=== PATIENT | male | born 1945 | race Caucasian/White ===

== ENCOUNTER 2019-01-21 13:07 | Inpatient (IN) | payer MEDICARE ==
[2019-01-21] MEDS ORDERED: ASPIRIN PO ONE (13:39)
[2019-01-21 13:58] LABS: Basophils % (Auto) 0.4 % (0.0-1.8); Eosinophils % (Auto) 0.4 % (0.0-4.3); Hemoglobin 14.7 gm/dl (11.8-15.2); Lymphocytes # (Auto) 1.1 K/mm3 (1.2-5.4); Lymphocytes % (Auto) 14.2 % (13.4-35.0); Mean Corpuscular HGB Conc 34 % (32-34); Mean Corpuscular Volume 95 fl (84-94); Monocytes # (Auto) 0.6 K/mm3 (0.0-0.8); Monocytes % (Auto) 7.6 % (0.0-7.3); Platelet Count 217 K/mm3 (140-440); Red Blood Count 4.51 M/mm3 (3.65-5.03); Red Cell Distribution Width 14.6 % (13.2-15.2)
--- NOTE | 2019-01-21 14:02 | XRay Report ---
AP CHEST: HISTORY: chest pain AP view of the chest demonstrates a normal mediastinal and cardiac contour with clear lungs and normal bony and soft tissue structures. IMPRESSION: Unremarkable AP chest.
[2019-01-21 14:18] LABS: BUN/Creatinine Ratio 12; Blood Urea Nitrogen 11 mg/dL (9-20); Hemolysis Index 10
[2019-01-21] MEDS ORDERED: BABY ASPIRIN ONE (14:43)
--- NOTE | 2019-01-21 15:17 | Emergency Department Report ---
ED Chest Pain HPI - General Chief Complaint: Chest Pain Stated Complaint: CHEST PAIN Time Seen by Provider: 01/21/19 13:47 Source: family, EMS Mode of arrival: Stretcher Limitations: Language Barrier - History of Present Illness Initial Comments: Mr. Pedraza is a 73 yo male with hx of HTN and tobacco abuse who presents with chest pain for the past 10 days. Intermittent chest pain. Moderate in severity. +dyspnea MD Complaint: chest pain -: Gradual, days(s) (10) Onset: during rest, during exertion Pain Location: substernal Severity: moderate Severity scale (0 -10): 2 Quality: tightness, heaviness Consistency: intermittent Improves With: rest - Related Data Allergies Allergy/AdvReac Type Severity Reaction Status Date / Time No Known Allergies Allergy Unverified 01/21/19 13:39 Heart Score - HEART Score History: Highly suspicious EKG: Non-specific Age: > 65 Risk factors: 1-2 risk factors Troponin: < normal limit HEART Score: 6 ED Review of Systems ROS: Stated complaint: CHEST PAIN Other details as noted in HPI Comment: All other systems reviewed and negative Constitutional: denies: fever, malaise Respiratory: see HPI, shortness of breath. denies: cough Cardiovascular: chest pain ED Past Medical Hx - Past Medical History Previous Medical History?: Yes Hx Hypertension: Yes - Surgical History Past Surgical History?: Yes Additional Surgical History: abdominal surgery - Social History Smoking Status: Never Smoker Substance Use Type: None ED Physical Exam - General Limitations: Language Barrier General appearance: alert, in no apparent distress - Head Head exam: Present: atraumatic, normocephalic - Eye Eye exam: Present: normal appearance - ENT ENT exam: Present: mucous membranes moist - Neck Neck exam: Present: normal inspection - Respiratory Respiratory exam: Present: normal lung sounds bilaterally. Absent: respiratory distress, wheezes, rales, rhonchi - Cardiovascular Cardiovascular Exam: Present: regular rate, normal rhythm, normal heart sounds. Absent: systolic murmur, diastolic murmur, rubs, gallop - GI/Abdominal GI/Abdominal exam: Present: soft, normal bowel sounds. Absent: distended, tenderness, guarding, rebound - Rectal Rectal exam: Present: deferred - Extremities Exam Extremities exam: Present: normal inspection - Back Exam Back exam: Present: normal inspection - Neurological Exam Neurological exam: Present: alert, oriented X3 - Psychiatric Psychiatric exam: Present: normal affect, normal mood - Skin Skin exam: Present: warm, dry, intact, normal color. Absent: rash ED Course Vital Signs 01/21/19 13:35 Temperature 98.2 F Pulse Rate 82 Respiratory 13 Rate Blood Pressure 158/96 Blood Pressure 158/96 [Right] O2 Sat by Pulse 97 Oximetry ED Medical Decision Making - Lab Data Result diagrams: 01/21/19 13:47 01/21/19 13:47 Laboratory Results - last 24 hr 01/21/19 01/21/19 13:47 13:47 WBC 7.8 RBC 4.51 Hgb 14.7 Hct 43.0 MCV 95 H MCH 33 H MCHC 34 RDW 14.6 Plt Count 217 Lymph % (Auto) 14.2 [place] % (Auto) 7.6 H Eos % (Auto) 0.4 Baso % (Auto) 0.4 Lymph # 1.1 L [place] # 0.6 Eos # 0.0 Baso # 0.0 Seg Neutrophils % 77.4 H Seg Neutrophils # 6.0 Sodium 141 Potassium 3.2 L Chloride 101.9 Carbon Dioxide 26 Anion Gap 16 BUN 11 Creatinine 0.9 Estimated GFR > 60 BUN/Creatinine Ratio 12 Glucose 176 H Calcium 9.0 Troponin T 0.473 H* - EKG Data 01/21/19 15:18 EKG obtained 1428 Normal sinus rhythm rate 70 beats a minute normal axis normal QT interval no ST elevation nonspecific T-wave abnormality Bifascicular block - Radiology Data Radiology results: report reviewed - Medical Decision Making Acute coronary syndrome, NSTEMI, currently pain-free. Given aspirin. Admitted to hospitalist service. Dr. Donald, motion picture commentator agreed to consult. Recommended [facility] Critical care attestation.: If time is entered above; I have spent that time in minutes in the direct care of this critically ill patient, excluding procedure time. ED Disposition Clinical Impression: Acute coronary syndrome, NSTEMI (non-ST elevated myocardial infarction) Disposition: OP ADMIT IP TO THIS HOSP Is pt being admited?: Yes Does the pt Need Aspirin: No Condition: Stable
[2019-01-21] MEDS ORDERED: SODIUM CHLORIDE FLUSH SYRINGE 10 ML IV PRN ×2 (15:49)
[2019-01-21] MEDS ORDERED: PROVENTIL IH PRN (15:49)
[2019-01-21] MEDS ORDERED: TYLENOL PO PRN (15:49)
[2019-01-21] MEDS ORDERED: NITROSTAT SL PRN (15:49)
[2019-01-21] MEDS ORDERED: ZOFRAN IV PRN (15:49)
[2019-01-21] MEDS ORDERED: MORPHINE IV PRN (15:49)
--- NOTE | 2019-01-21 15:52 | History and Physical Report ---
History of Present Illness Chief complaint: My chest hurts History of present illness: 73 YO Male with HTN, Nicotine Dependence presents to ED for evaluation. Pt states that he has experienced pain in his chest over the past 10 days. Pt states that his pain is 10/10, Substernal, Intermittent, crushing in nature, worsened with exertion, relieved with rest, associated with shortness of breath. Pt acknowledges decreased exercise tolerance, dypsnea on exertion. Pt presented to his PCP office today, and was found to have stable angina. EMS notified and patient transported to [facility]. Pt seen and evaluated in ED and found to have STEMI, as well as symptoms consistent with diastolic CHF. Pt treated with therapeutic lovenox in ED, and admitted to telemetry. Cardiology consulted in ED. Pt denies fever, chills, palpitations, NVD, Trauma, BRBPR, Productive cough, skin rash, unilateral leg swelling, calf pain, individual/family history of DVT/PE/Blood Clotting Disorders. No previous admissions. Past History Past Medical History: hypertension Past Surgical History: bowel surgery Social history: , smoking Family history: hypertension Medications and Allergies Allergies Allergy/AdvReac Type Severity Reaction Status Date / Time No Known Allergies Allergy Unverified 01/21/19 13:39 Active Meds: Active Medications Enoxaparin Sodium (Lovenox) 60 mg 1 mg/kg (60 mg) SUB-Q Q12HR FRANCI Review of Systems Constitutional: no weight loss, no weight gain, no fever, no chills Ears, nose, mouth and throat: no ear pain, no ear discharge, no tinnitis, no decreased hearing, no nose pain Cardiovascular: chest pain, shortness of breath, dyspnea on exertion, decreased exercise tolerance, no orthopnea, no palpitations, no syncope, no li ghtheadedness Respiratory: no cough, no cough with sputum, no excessive sputum, no hemoptysis Gastrointestinal: no nausea, no vomiting, no diarrhea, no constipation Genitourinary Male: no flank pain, no discharge Rectal: no pain, no incontinence, no bleeding Musculoskeletal: no neck stiffness, no neck pain, no shooting arm pain, no arm numbness/tingling, no low back pain, no shooting leg pain Integumentary: no rash, no pruritis, no redness, no sores, no wounds Neurological: no transient paralysis, no paralysis, no weakness, no parathesias, no numbness, no tingling, no seizures Psychiatric: no anxiety, no memory loss, no change in sleep habits, no sleep disturbances, no insomnia, no hypersomnia Endocrine: no cold intolerance, no heat intolerance, no polyphagia, no excessive thirst, no polydipsia Hematologic/Lymphatic: no easy bruising, no easy bleeding, no lymphadenopathy, no lymphedema Allergic/Immunologic: no urticaria, no allergic rhinitis, no wheezing, no persistent infections, no anaphylaxis, no angioedema Exam - Constitutional Vitals: Temp Pulse Resp BP Pulse Ox 98.2 F 82 13 158/96 97 01/21/19 13:35 01/21/19 13:35 01/21/19 13:35 01/21/19 13:35 01/21/19 13:35 General appearance: Present: mild distress - EENT Eyes: Present: PERRL ENT: hearing intact, clear oral mucosa - Neck Neck: Present: supple, normal ROM - Respiratory Respiratory effort: normal Respiratory: bilateral: CTA - Cardiovascular Heart Sounds: Present: S1 & S2. Absent: rub, click - Extremities Extremities: pulses symmetrical, No edema Peripheral Pulses: within normal limits - Abdominal General gastrointestinal: Present: soft, non-tender, non-distended, normal bowel sounds Male genitourinary: Present: normal - Integumentary Integumentary: Present: clear, warm, dry - Musculoskeletal Musculoskeletal: gait normal, strength equal bilaterally - Psychiatric Psychiatric: appropriate mood/affect, intact judgment & insight - Neurologic Neurologic: CNII-XII intact, moves all extremities Results - Labs CBC & Chem 7: 01/21/19 13:47 01/21/19 13:47 Labs: Abnormal lab results 01/21/19 01/21/19 Range/Units 13:47 13:47 MCV 95 H (84-94) fl MCH 33 H (28-32) pg [place] % (Auto) 7.6 H (0.0-7.3) % Lymph # 1.1 L (1.2-5.4) K/mm3 Seg Neutrophils % 77.4 H (40.0-70.0) % Potassium 3.2 L (3.6-5.0) mmol/L Glucose 176 H (75-100) mg/dL Troponin T 0.473 H* (0.00-0.029) ng/mL Assessment and Plan - Patient Problems (1) NSTEMI (non-ST elevated myocardial infarction) Current Visit: Yes Status: Acute Plan to address problem: Admit to telemetry, Morphine, supplemental oxygen, nitro, aspirin, therapeutic anticoagulation, serial cardiac enzymes, ekg, pain control, lipid panel, supportive care. Cardiology consulted in ED. (2) CHF (congestive heart failure) Current Visit: Yes Status: Acute Qualifiers: Heart failure type: diastolic Heart failure chronicity: acute Qualified Code(s): I50.31 - Acute diastolic (congestive) heart failure Plan to address problem: Admit to telemetry, strict I/O, daily weight, blood pressure control, BNP, Cardiology consulted in ED, Echo ordered in ED and pending at time of admission. (3) Nicotine dependence Current Visit: Yes Status: Acute Qualifiers: Nicotine product type: cigarettes Plan to address problem: smoking cessation, supportive care. (4) DVT prophylaxis Current Visit: Yes Status: Acute Plan to address problem: SCD to BLE, therapeutic anticoagulation
[2019-01-21] MEDS ORDERED: BABY ASPIRIN PO STA (15:59)
[2019-01-21 16:24] LABS: Basophils % (Auto) 0.2 % (0.0-1.8); Eosinophils # (Auto) 0.1 K/mm3 (0.0-0.4); Eosinophils % (Auto) 0.6 % (0.0-4.3); Hematocrit 43.7 % (35.5-45.6); Lymphocytes # (Auto) 1.5 K/mm3 (1.2-5.4); Lymphocytes % (Auto) 17.1 % (13.4-35.0); Mean Corpuscular HGB Conc 34 % (32-34); Mean Corpuscular Volume 96 fl (84-94); Monocytes # (Auto) 0.7 K/mm3 (0.0-0.8); Monocytes % (Auto) 8.4 % (0.0-7.3); Platelet Count 212 K/mm3 (140-440); Red Blood Count 4.56 M/mm3 (3.65-5.03); Red Cell Distribution Width 14.7 % (13.2-15.2)
[2019-01-21] MEDS: LOVENOX SUB-Q SCH ×2 (16:44→21:22)
[2019-01-21 16:45] LABS: BUN/Creatinine Ratio 13; Blood Urea Nitrogen 10 mg/dL (9-20); Calcium 9.2 mg/dL (8.4-10.2); Hemolysis Index 18
[2019-01-21 20:05] LABS: Chol/HDL Ratio 5.52 %; HDL Cholesterol 38 mg/dL (40-59); LDL Cholesterol,Direct 167 mg/dL (50-130)
[2019-01-21] MEDS: PEPCID PO SCH (21:11)
[2019-01-21] MEDS: SODIUM CHLORIDE FLUSH SYRINGE 10 ML IV SCH (21:16)
[2019-01-22 06:22] LABS: BUN/Creatinine Ratio 12; Blood Urea Nitrogen 12 mg/dL (9-20); Calcium 8.8 mg/dL (8.4-10.2); Hemolysis Index 7
--- NOTE | 2019-01-22 10:58 | Consultation ---
History of Present Illness Consult date: 01/22/19 Consult reason: elevated troponin History of present illness: Patient is a 73 year old Icelandic male who speaks minimal Citizen Of [place]. He gives a history of Hypertension and tobacco abuse. Patient presented to this hospital with complaints of chest pain. Patient denies unusual shortness of breath, palpitations and syncope. There was elevation of his troponin that gives concern for non-ST elevation NM. Cardiac consultation requested. Patient denies a prior cardiac history and he has no had a recent cardiac workup. 12 lead ECG shows sinus rhythm with a RBBB. There is no prior ECG for comparison. Past History Past Medical History: hypertension Social history: , smoking Family history: hypertension Medications and Allergies Allergies Allergy/AdvReac Type Severity Reaction Status Date / Time No Known Allergies Allergy Unverified 01/21/19 13:39 Home Medications Medication Instructions Recorded Confirmed Last Taken Type No Known Home Medications [No 01/21/19 01/21/19 Unknown History Reported Home Medications] Active Meds: Active Medications Acetaminophen (Tylenol) 650 mg PO Q4H PRN PRN Reason: Pain MILD(1-3)/Fever >100.5/HERNANDEZ Albuterol (Proventil) 2.5 mg IH Q4HRT PRN PRN Reason: Shortness Of Breath Famotidine (Pepcid) 20 mg PO BID [facility] Last Admin: 01/21/19 21:11 Dose: 20 mg Documented by: Morphine Sulfate (Morphine) 2 mg IV Q4H PRN PRN Reason: Pain, Moderate (4-6) Nitroglycerin (Nitrostat) 0.4 mg SL Q5M PRN PRN Reason: Chest Pain Ondansetron HCl (Zofran) 4 mg IV Q8H PRN PRN Reason: Nausea And Vomiting Sodium Chloride (Sodium Chloride Flush Syringe 10 Ml) 10 ml IV BID [facility] Last Admin: 01/21/19 21:16 Dose: 10 ml Documented by: Sodium Chloride (Sodium Chloride Flush Syringe 10 Ml) 10 ml IV PRN PRN PRN Reason: LINE FLUSH Physical Examination Vital Signs Temp Pulse Resp BP Pulse Ox 98.2 F 82 13 158/96 97 01/21/19 13:35 01/21/19 13:35 01/21/19 13:35 01/21/19 13:35 01/21/19 13:35 General appearance: no acute distress HEENT: Positive: PERRL Neck: Positive: trachea midline Cardiac: Positive: Reg Rate and Rhythm Lungs: Positive: Decreased Breath Sounds Neuro: Positive: Grossly Intact Extremities: Absent: edema Results 01/21/19 16:14 01/22/19 04:45 Lipids 01/21/19 Range/Units 13:47 Triglycerides 150 H (2-149) mg/dL Cholesterol 210 H (50-199) mg/dL HDL Cholesterol 38 L (40-59) mg/dL Cholesterol/HDL Ratio 5.52 % CBC 01/21/19 01/21/19 Range/Units 13:47 16:14 WBC 7.8 8.7 (4.5-11.0) K/mm3 RBC 4.51 4.56 (3.65-5.03) M/mm3 Hgb 14.7 15.0 (11.8-15.2) gm/dl Hct 43.0 43.7 (35.5-45.6) % Plt Count 217 212 (140-440) K/mm3 Lymph # 1.1 L 1.5 (1.2-5.4) K/mm3 [place] # 0.6 0.7 (0.0-0.8) K/mm3 Eos # 0.0 0.1 (0.0-0.4) K/mm3 Baso # 0.0 0.0 (0.0-0.1) K/mm3 Comprehensive Metabolic Panel 01/21/19 01/21/19 01/22/19 Range/Units 13:47 16:14 04:45 Sodium 141 143 143 (137-145) mmol/L Potassium 3.2 L 3.5 L 3.5 L (3.6-5.0) mmol/L Chloride 101.9 103.0 102.7 (98-107) mmol/L Carbon Dioxide 26 27 24 (22-30) mmol/L BUN 11 10 12 (9-20) mg/dL Creatinine 0.9 0.8 1.0 (0.8-1.5) mg/dL Glucose 176 H 116 H 120 H (75-100) mg/dL Calcium 9.0 9.2 8.8 (8.4-10.2) mg/dL Assessment and Plan NSTEMI Hypertension Former smoker, quit 1 month ago We recommend a cardiac catheterization for further ischemic evaluation. Patient agrees to proceed.
--- NOTE | 2019-01-22 11:46 | Progress Note ---
Assessment and Plan Assessment and plan: NSTEMI. Cardiology consult. Cardiology plans for cardiac catheterization. Continue medical management. Follow-up echocardiogram. Hypertension. Continue anti-hypertensive medications. Tobacco abuse. Patient will be counseled on smoking cessation. History Interval history: Patient is a 73 year old Jamaican male who speaks minimal Upper Sorbian. He gives a history of Hypertension and tobacco abuse. Patient presented to this hospital with complaints of chest pain. Patient denies unusual shortness of breath, palpitations and syncope. There was elevation of his troponin that gives concern for non-ST elevation AK. Cardiac consultation requested. Patient currently denies any chest pain. Hospitalist Physical - Constitutional Vitals: Temp Pulse Resp BP Pulse Ox 98.0 F 62 18 128/78 96 01/22/19 04:42 01/22/19 04:42 01/22/19 04:42 01/22/19 04:42 01/22/19 10:30 General appearance: Present: mild distress - EENT Eyes: Present: PERRL, EOM intact ENT: hearing intact, clear oral mucosa, dentition normal - Neck Neck: Present: supple, normal ROM - Respiratory Respiratory effort: normal Respiratory: bilateral: CTA - Cardiovascular Rhythm: regular Heart Sounds: Present: S1 & S2. Absent: gallop, rub - Extremities Extremities: no ischemia, No edema, Full ROM - Abdominal General gastrointestinal: soft, non-tender, non-distended, normal bowel sounds - Integumentary Integumentary: Present: clear, warm, dry - Neurologic Neurologic: CNII-XII intact, moves all extremities Results - Labs CBC & Chem 7: 01/21/19 16:14 01/22/19 04:45 Labs: Laboratory Last Values WBC 8.7 K/mm3 (4.5-11.0) 01/21/19 16:14 RBC 4.56 M/mm3 (3.65-5.03) 01/21/19 16:14 Hgb 15.0 gm/dl (11.8-15.2) 01/21/19 16:14 Hct 43.7 % (35.5-45.6) 01/21/19 16:14 MCV 96 fl (84-94) H 01/21/19 16:14 MCH 33 pg (28-32) H 01/21/19 16:14 MCHC 34 % (32-34) 01/21/19 16:14 RDW 14.7 % (13.2-15.2) 01/21/19 16:14 Plt Count 212 K/mm3 (140-440) 01/21/19 16:14 Lymph % (Auto) 17.1 % (13.4-35.0) 01/21/19 16:14 [place] % (Auto) 8.4 % (0.0-7.3) H 01/21/19 16:14 Eos % (Auto) 0.6 % (0.0-4.3) 01/21/19 16:14 Baso % (Auto) 0.2 % (0.0-1.8) 01/21/19 16:14 Lymph # 1.5 K/mm3 (1.2-5.4) 01/21/19 16:14 [place] # 0.7 K/mm3 (0.0-0.8) 01/21/19 16:14 Eos # 0.1 K/mm3 (0.0-0.4) 01/21/19 16:14 Baso # 0.0 K/mm3 (0.0-0.1) 01/21/19 16:14 Seg Neutrophils % 73.7 % (40.0-70.0) H 01/21/19 16:14 Seg Neutrophils # 6.4 K/mm3 (1.8-7.7) 01/21/19 16:14 Sodium 143 mmol/L (137-145) 01/22/19 04:45 Potassium 3.5 mmol/L (3.6-5.0) L 01/22/19 04:45 Chloride 102.7 mmol/L (98-107) 01/22/19 04:45 Carbon Dioxide 24 mmol/L (22-30) 01/22/19 04:45 Anion Gap 20 mmol/L 01/22/19 04:45 BUN 12 mg/dL (9-20) 01/22/19 04:45 Creatinine 1.0 mg/dL (0.8-1.5) 01/22/19 04:45 Estimated GFR > 60 ml/min 01/22/19 04:45 BUN/Creatinine Ratio 12 % 01/22/19 04:45 Glucose 120 mg/dL (75-100) H 01/22/19 04:45 Calcium 8.8 mg/dL (8.4-10.2) 01/22/19 04:45 Troponin T 1.830 ng/mL (0.00-0.029) H* D 01/21/19 19:55 NT-Pro-B Natriuret Pep 526.1 pg/mL (0-900) 01/21/19 16:14 Triglycerides 150 mg/dL (2-149) H 01/21/19 13:47 Cholesterol 210 mg/dL (50-199) H 01/21/19 13:47 LDL Cholesterol Direct 167 mg/dL (50-130) H 01/21/19 13:47 HDL Cholesterol 38 mg/dL (40-59) L 01/21/19 13:47 Cholesterol/HDL Ratio 5.52 % 01/21/19 13:47 Active Medications - Current Medications Current Medications: Generic Name Dose Route Start Last Admin Trade Name Freq PRN Reason Stop Dose Admin Acetaminophen 650 mg 01/21/19 15:49 Tylenol PO Q4H PRN Pain MILD(1-3)/Fever >100.5/HERNANDEZ Albuterol 2.5 mg 01/21/19 15:49 Proventil IH Q4HRT PRN Shortness Of Breath Aspirin 81 mg 01/22/19 12:00 Halfprin Ec PO QDAY [facility] Atorvastatin Calcium 40 mg 01/22/19 22:00 Lipitor PO QHS [facility] Famotidine 20 mg 01/21/19 22:00 01/21/19 21:11 Pepcid PO 20 mg BID FRANCI Administration Sodium Chloride 500 mls @ 50 mls/hr 01/22/19 12:00 Nacl 0.9% 500 Ml IV 01/22/19 21:59 DIRECT FRANCI Morphine Sulfate 2 mg 01/21/19 15:49 Morphine IV Q4H PRN Pain, Moderate (4-6) Nitroglycerin 0.4 mg 01/21/19 15:49 Nitrostat SL Q5M PRN Chest Pain Ondansetron HCl 4 mg 01/21/19 15:49 Zofran IV Q8H PRN Nausea And Vomiting Sodium Chloride 10 ml 01/21/19 22:00 01/21/19 21:16 Sodium Chloride Flush Syringe 10 Ml IV 10 ml BID [facility]ANCI Administration Sodium Chloride 10 ml 01/21/19 15:49 Sodium Chloride Flush Syringe 10 Ml IV PRN PRN LINE FLUSH
[2019-01-22] MEDS ORDERED: NACL 0.9% 500 ML 500 ML IV SCH (12:00)
[2019-01-22] MEDS ORDERED: CALAN ONE (12:18)
[2019-01-22] MEDS ORDERED: HEPARIN 10,000 UNITS/10 ML ONE ×2 (12:18→13:12)
[2019-01-22] MEDS ORDERED: HALFPRIN EC PO ONE (12:18)
[2019-01-22] MEDS ORDERED: HEPARIN/NS 5000 UNIT/500ML(CATH LAB) 1,000 ML IR ONE (12:18)
[2019-01-22] MEDS ORDERED: NACL 0.9% 500 ML 500 ML ONE (12:19)
[2019-01-22] MEDS ORDERED: NITROGLYCERIN SYRINGE 3 ML ONE (12:19)
[2019-01-22] MEDS ORDERED: XYLOCAINE 2% INFILTRATI ONE (12:19)
[2019-01-22 12:23] LABS: INR 0.93 (0.87-1.13)
[2019-01-22] MEDS: PEPCID PO SCH ×2 (12:41→21:21)
[2019-01-22] MEDS ORDERED: K-DUR PO ONE (13:10)
[2019-01-22] MEDS ORDERED: VERSED ONE (13:12)
[2019-01-22] MEDS ORDERED: SUBLIMAZE ONE (13:13)
[2019-01-22] MEDS ORDERED: PLAVIX ONE (13:39)
[2019-01-22] MEDS ORDERED: ALUM-MAG HYDROX-SIMETH 200-200-20MG/5ML ONE (13:39)
--- NOTE | 2019-01-22 13:47 | Cardiac Catherization Report ---
LEFT HEART CATHETERIZATION INDICATION: Non-ST elevation myocardial infarction. PROCEDURE PERFORMED: Selective left and right coronary angiography, left ventriculography. DESCRIPTION OF PROCEDURE: After obtaining written consent, the patient was draped using sterile technique. A 2% lidocaine was injected into the right wrist. A 6-Libyan vascular sheath was inserted into the right radial artery, 6-Libyan JL3.5 catheter was used to selectively engage the left coronary artery. A 6-Libyan JR4 catheter was used to selectively engage the right coronary artery. A 6-Libyan JR4 catheter was used to hand inject left ventriculogram. No complications occurred during the procedure. SPECIMEN REMOVED: None. No sedation was administered. FINDINGS: HEMODYNAMICS: Aortic pressure 120/64. LV systolic pressure 104 mmHg. LVEDP measured at 8 mmHg. No significant gradient noted across left ventricular outflow tract. CARDIAC STRUCTURES: The left ventricle is normal in size and systolic function, left ventricular ejection fraction is estimated at 60%. No regional wall motion abnormality detected. CORONARY ANATOMY: 1. This is a right dominant circulation. 2. The left main has mild luminal irregularities. 3. The left anterior descending artery has scattered 20-30% tubular lesions. There is evidence of a mid 40% stenosis at the takeoff of the second diagonal artery. 4. The left circumflex artery has evidence of a focal 99% stenosis noted in the mid circumflex artery. 5. The right coronary artery is dominant. There are scattered 30% lesions noted throughout the right coronary artery. There is a focal 30-40% lesion noted in the proximal PDA. IMPRESSION: 1. Obstructive single vessel disease with a 99% focal lesion in the mid circumflex artery, otherwise nonobstructive coronary artery disease noted in the LAD and right coronary artery. 2. Normal left ventricular ejection fraction. 3. LVEDP measured at 8 mmHg. RECOMMENDATIONS: Proceed with percutaneous coronary intervention of the left circumflex artery. JOB# [id number] CORWIN/VAN
[2019-01-22] MEDS ORDERED: NACL 0.9% 1000 ML 1,000 ML IV SCH (14:00)
--- NOTE | 2019-01-22 14:08 | Cardiac Catherization Report ---
CORONARY ANGIOPLASTY REPORT REASON FOR PROCEDURE: The patient is a 73-year-old man who presented to the hospital with a non-ST elevation myocardial infarction. A cardiac catheterization done revealed a greater than 95% stenosis of the mid circumflex artery, at the bifurcation of the mid obtuse marginal branch. The lesion had the appearance of an occlusive, ulcerated plaque. Coronary intervention was recommended. PROCEDURE: 1. Coronary angioplasty and stenting of the circumflex artery. 2. Sedation time start 1320 hours, end 1346 hours. We selected a 6-[place] #3.0 EBU guiding catheter, and I used the radial access in place from the diagnostic procedure. The EBU guider was advanced to the left coronary ostium. A 0.014 inch [employer] 50 guidewire was directed into the circumflex, across the lesional segment, and placed in the distal vessel. Another, a guidewire was introduced, and directed into the mid obtuse marginal, which originated from the lesional segment. In a primary stenting maneuver, we deployed a 3.5 x 12 mm Xience drug-eluting stent, inflating the stent to optimal pressures. Following stenting, there was an excellent result at the treated lesion. We then withdrew the side branch wire, and reinserted into the obtuse marginal through the stent struts. Using a 2.5 mm balloon, we dilated the ostium of the obtuse marginal through the stent struts. Following coronary stenting and angioplasty as outlined, there was an excellent angiographic result, 0 residual stenosis at the primary lesion and 0 residual at the ostium of the side branch. The patient tolerated the procedure well and there were no complications. The catheters and the wires were removed, sheath removed, and hemostasis achieved using a TR band. The patient was returned to the postprocedure unit in stable condition. There were no complications. CONCLUSION: Successful angioplasty and stenting of the mid circumflex artery, excellent angiographic result following deployment of a 3.5 mm drug-eluting stent, and post-stent balloon angioplasty. JOB# [id number] ANITA/VAN
[2019-01-22] MEDS ORDERED: NACL 0.9% 1000 ML 1,000 ML ONE (15:17)
[2019-01-22] MEDS: SODIUM CHLORIDE FLUSH SYRINGE 10 ML IV SCH ×2 (16:13→21:26)
[2019-01-22] MEDS: HALFPRIN EC PO SCH (16:13)
[2019-01-22] MEDS: IMDUR PO SCH (18:36)
[2019-01-22] MEDS: LOPRESSOR PO SCH ×2 (18:36→21:21)
[2019-01-23 05:39] LABS: Basophils % (Auto) 0.3 % (0.0-1.8); Eosinophils # (Auto) 0.1 K/mm3 (0.0-0.4); Eosinophils % (Auto) 0.9 % (0.0-4.3); Hematocrit 36.8 % (35.5-45.6); Hemoglobin 12.5 gm/dl (11.8-15.2); Lymphocytes # (Auto) 1.2 K/mm3 (1.2-5.4); Lymphocytes % (Auto) 16.8 % (13.4-35.0); Mean Corpuscular HGB Conc 34 % (32-34); Mean Corpuscular Volume 97 fl (84-94); Monocytes # (Auto) 0.8 K/mm3 (0.0-0.8); Monocytes % (Auto) 11.4 % (0.0-7.3); Platelet Count 187 K/mm3 (140-440); Red Blood Count 3.82 M/mm3 (3.65-5.03); Red Cell Distribution Width 14.5 % (13.2-15.2)
[2019-01-23 05:56] LABS: Creatine Kinase MB 7.4 ng/mL (0.0-4.0)
[2019-01-23 05:57] LABS: BUN/Creatinine Ratio 15; Blood Urea Nitrogen 17 mg/dL (9-20); Calcium 8.2 mg/dL (8.4-10.2); Hemolysis Index 7
[2019-01-23] MEDS: LOPRESSOR PO SCH (07:39)
[2019-01-23] MEDS: IMDUR PO SCH (09:37)
[2019-01-23] MEDS: HALFPRIN EC PO SCH (09:38)
[2019-01-23] MEDS: PEPCID PO SCH (09:38)
[2019-01-23] MEDS: SODIUM CHLORIDE FLUSH SYRINGE 10 ML IV SCH (09:39)
[2019-01-23] MEDS ORDERED: PLAVIX PO SCH (10:00)
--- NOTE | 2019-01-23 10:41 | Progress Note ---
Assessment and Plan 1. Acute non-ST elevation VA. 2. Status post PCI with drug eluting stent implant to the left circumflex artery 3. Essential hypertension Plan. Cardiac-valdivia stable continue present medication with antiplatelet therapy beta blockers and statins. Okay to discharge home follow up in the office Subjective Date of service: 01/23/19 Interval history: No cardiac symptoms Objective Vital Signs Temp Pulse Resp BP Pulse Ox 01/23/19 09:37 10 L 01/23/19 09:24 98.4 F 53 L 18 110/66 95 01/23/19 07:39 47 L 01/23/19 04:26 98.1 F 51 L 18 104/55 94 01/22/19 23:43 98.4 F 49 L 18 113/56 96 01/22/19 22:00 66 18 01/22/19 19:37 98.2 F 67 18 118/63 94 01/22/19 17:11 61 122/72 97 01/22/19 15:30 61 12 137/76 96 01/22/19 15:15 60 13 146/84 95 01/22/19 15:00 63 19 140/76 95 01/22/19 14:45 65 18 135/78 96 01/22/19 14:30 57 L 20 127/76 94 01/22/19 14:12 60 18 138/80 95 - Physical Examination General: Appears Well, No Apparent Distress HEENT: Positive: PERRL Neck: Positive: trachea midline. Negative: JVD/HJR Cardiac: Positive: Reg Rate and Rhythm, Regular Rate, S1/S2. Negative: S3, S4 Lungs: Positive: clear to auscultation, No Wheeze, Rales, Rhonchi Neuro: Positive: Grossly Intact Extremities: Absent: edema - Labs and Meds Cardiac Enzymes 01/23/19 Range/Units 04:19 CK-MB (CK-2) 7.4 H (0.0-4.0) ng/mL Coagulation 01/22/19 Range/Units 12:03 PT 13.0 (12.2-14.9) Sec. INR 0.93 (0.87-1.13) CBC 01/23/19 Range/Units 04:19 WBC 7.3 (4.5-11.0) K/mm3 RBC 3.82 (3.65-5.03) M/mm3 Hgb 12.5 (11.8-15.2) gm/dl Hct 36.8 D (35.5-45.6) % Plt Count 187 (140-440) K/mm3 Lymph # 1.2 (1.2-5.4) K/mm3 [place] # 0.8 (0.0-0.8) K/mm3 Eos # 0.1 (0.0-0.4) K/mm3 Baso # 0.0 (0.0-0.1) K/mm3 Comprehensive Metabolic Panel 01/23/19 Range/Units 04:19 Sodium 139 (137-145) mmol/L Potassium 3.9 (3.6-5.0) mmol/L Chloride 102.9 (98-107) mmol/L Carbon Dioxide 25 (22-30) mmol/L BUN 17 (9-20) mg/dL Creatinine 1.1 (0.8-1.5) mg/dL Glucose 125 H (75-100) mg/dL Calcium 8.2 L (8.4-10.2) mg/dL
--- NOTE | 2019-01-23 11:10 | Discharge Summary ---
Providers - Providers Date of Admission: 01/21/19 15:49 Date of discharge: 01/23/19 Attending physician: TARAH RESENDIZ 01/21/19 Consult to Cardiac Rehabilitation [CONS] Routine Reason For Exam: Phase I 01/21/19 15:49 Consult to Physician [CONS] Routine Comment: Consulting Provider: EMERALD WYNN Physician Instructions: Reason For Exam: nstemi 01/22/19 Consult to Cardiac Rehabilitation [CONS] Routine Reason For Exam: post pci Primary care physician: ELHAM MORALES Hospitalization Reason for admission: NSTEMI Condition: Stable Hospital course: Patient is a 73 year old Israeli male who speaks minimal Occitan presented with a history of Hypertension and tobacco abuse and complaints of chest pain. Patient denied unusual shortness of breath, palpitations and syncope. There was elevation of his troponin that gives concern for non-ST elevation AL. Cardiac consultation requested. Patient was admitted with diagnosis of NSTEMI. Patient underwent cardiac catheterization with PCI/drug eluting stent implant to the left circumflex artery. Echocardiogram revealed left ventricular chamber size that is normal with normal contractility EF 55-60%. Patient with abnormal left ventricular diastolic filling consistent with impaired relaxation. Medications were optimized post catheterization. Cardiology felt the patient could be discharged home. Dedicated discharge time 32 minutes. Disposition: [id number] TO HOME OR SELFCARE Time spent for discharge: 32 - Discharge Diagnoses (1) Acute diastolic (congestive) heart failure Status: Acute (2) Acute coronary syndrome Status: Acute (3) NSTEMI (non-ST elevated myocardial infarction) Status: Acute Core Measure Documentation - Palliative Care Palliative Care/ Comfort Measures: Not Applicable - Core Measures Any of the following diagnoses?: acute AL, heart failure - Acute AL Discharge Requirements Aspirin at discharge: Yes JAIRON/ARB for LVSD if EF <40%: No Reason for no JAIRON/ARB: Hypotension Beta dwain at discharge: Yes Statin for LDL = or >100 mg/dl on DC: Yes - Heart Failure Discharge Requirements JAIRON/ARB for LVSD if EF <40%: No Reason for no JAIRON/ARB: Hypotension Beta dwain at discharge: Yes Exam - Constitutional Vitals: Temp Pulse Resp BP Pulse Ox 98.4 F 10 L 18 110/66 95 01/23/19 09:24 01/23/19 09:37 01/23/19 09:24 01/23/19 09:24 01/23/19 09:24 General appearance: Present: no acute distress, well-nourished - EENT Eyes: Present: PERRL ENT: hearing intact, clear oral mucosa - Neck Neck: Present: supple, normal ROM - Respiratory Respiratory effort: normal Respiratory: bilateral: CTA - Cardiovascular Heart Sounds: Present: S1 & S2. Absent: rub, click - Extremities Extremities: pulses symmetrical, No edema Peripheral Pulses: within normal limits - Abdominal General gastrointestinal: Present: soft, non-tender, non-distended, normal bowel sounds Male genitourinary: Present: normal - Integumentary Integumentary: Present: clear, warm, dry - Musculoskeletal Musculoskeletal: gait normal, strength equal bilaterally - Psychiatric Psychiatric: appropriate mood/affect, intact judgment & insight - Neurologic Neurologic: CNII-XII intact, moves all extremities Plan Activity: advance as tolerated Weight Bearing Status: Weight Bear as Tolerated Diet: low fat, low cholesterol, low salt Follow up with: ELHAM MORALES MD [Primary Care Provider] - 7 Days EMERALD WYNN MD [Staff Physician] - 7 Days Prescriptions: Aspirin EC [Aspirin Enteric Coated TAB] 81 mg PO QDAY #30 tablet ISOSORBIDE MONOnitrate [Imdur ER] 30 mg PO QDAY #30 tablet AtorvaSTATin [Lipitor] 40 mg PO QHS #30 tablet Metoprolol [Lopressor TAB] 25 mg PO Q8HR #90 tablet Nitroglycerin [Nitrostat] 0.4 mg SL Q5M PRN #15 tablet PRN Reason: Chest Pain Famotidine [Pepcid] 20 mg PO BID #60 tablet Clopidogrel [Plavix] 75 mg PO QDAY #30 tablet
[2019-01-23 12:13] VITALS: BP 109/62
--- NOTE | 2019-01-23 12:56 | XRay Report ---
PROCEDURE: XR CHEST 1V AP TECHNIQUE: Chest radiograph, portable AP view. HISTORY: post pci COMPARISONS: None currently available. FINDINGS: Cardiac silhouette is within normal limits. There is no effusion. There is no pneumothorax. There is no consolidation. There are no suspicious osseous lesions. Degenerative changes in both shoulders. IMPRESSION: * No acute cardiopulmonary findings. This document is electronically signed by Miguel Grider MD., January 23 2019 12:54:16 PM ET
[2019-01-24] MEDS ORDERED: LOPRESSOR PO SCH (06:00)
== END 2019-01-23 17:26 | disposition home or self-care (01) | DRG 246 ==
LOC: ED 13:07 → 4A 15:49
PROVIDERS: ADMIT Internal Medicine; ATTEND Hospitalist
PROC: 0270346 Dilation of Coronary Artery, One Artery, Bifurcation, with Drug-eluting Intraluminal Device, Percutaneous Approach (ICD-10-PCS; principal; 2019-01-22)
PROC: 02703ZZ Dilation of Coronary Artery, One Artery, Percutaneous Approach (ICD-10-PCS; 2019-01-22)
PROC: 4A023N7 Measurement of Cardiac Sampling and Pressure, Left Heart, Percutaneous Approach (ICD-10-PCS; 2019-01-22)
PROC: B2111ZZ Fluoroscopy of Multiple Coronary Arteries using Low Osmolar Contrast (ICD-10-PCS; 2019-01-22)
PROC: B2151ZZ Fluoroscopy of Left Heart using Low Osmolar Contrast (ICD-10-PCS; 2019-01-22)
DX: I21.4 Non-ST elevation (NSTEMI) myocardial infarction (principal); I50.31 Acute diastolic (congestive) heart failure; I45.2 Bifascicular block; I11.0 Hypertensive heart disease with heart failure; I24.9 Acute ischemic heart disease, unspecified; F17.210 Nicotine dependence, cigarettes, uncomplicated; Z82.49 Family history of ischemic heart disease and other diseases of the circulatory system; Z71.6 Tobacco abuse counseling
CPT/HCPCS: 36415; 71045; 80048; 80061; 82550; 82553; 83880; 84484; 85025; 85347; 85610; 92921; 92928; 93005; 93010; 93306; 93458; 99406; G0378; A9270-GY; C1725; C1769; C1874; C1887; C1894; C9600; J1644; J1650; J2250; J3010; J7030; J7040; Q9967